=== PATIENT | female | born 1970 | race Caucasian/White ===

== ENCOUNTER 2016-08-11 22:06 | Emergency (ER) | payer OTHER ==
[~2016-08-11] VITALS: Ht 162.6 cm; Wt 52.6 kg
[2016-08-11 22:19] VITALS: BP 136/81
--- NOTE | 2016-08-11 22:37 | NUR ---
PT TAKEN TO BED 8
--- NOTE | 2016-08-11 22:50 | NUR ---
PATIENT PRESENTS TO ED WITH GENERALIZED ABD PAIN . PT STATES SHE HAS BEEN VOMITING WELL AND THE PAIN HAS A CONSTANT BURNING SENSATION . DENIES DIARRHEA; SKIN IS PINK/WARM/DRY; AAOX4 WITH EVEN AND STEADY GAIT; LUNGS CLEAR BL; HR EVEN AND REGULAR; PT DENIES ANY FEVER, CP, AND SOB AT THIS TIME; PATIENT STATES PAIN OF 8/10 AT THIS TIME; VSS; PATIENT POSITIONED FOR COMFORT; HOB ELEVATED; BEDRAILS UP X2; BED DOWN. ER MD MADE AWARE OF PT STATUS.
--- NOTE | 2016-08-11 22:55 | NUR ---
Ultrasound at bedside.
[2016-08-11] MEDS ORDERED: ONDANSETRON 4 MG/2 ML VIAL IVP ONE (23:00)
[2016-08-11] MEDS ORDERED: MORPHINE SULFATE 4 MG/ML SYR IVP ONE (23:00)
[2016-08-11] MEDS ORDERED: NACL 0.9% 1,000 ML IV ONE (23:00)
[2016-08-11 23:08] LABS: APPEARANCE,URINE HAZY (CLEAR); BILIRUBIN,URINE NEGATIVE (NEGATIVE); BLOOD, URINE 3+ (NEGATIVE); COLOR,URINE YELLOW (YELLOW); LEUKOCYTE ESTERASE ,URINE NEGATIVE (NEGATIVE); NITRITE, URINE NEGATIVE (NEGATIVE); PROTEIN,URINE NEGATIVE (NEGATIVE); UGLUCOSE NEGATIVE (NEGATIVE); UROBILINOGEN,URINE 0.2 EU/dL (0.2 - 1)
--- NOTE | 2016-08-11 23:15 | NUR ---
Dr. Hernandez evaluating patient at bedside.
[2016-08-11 23:16] LABS: ANION GAP 13.2 (8-16); CALCIUM 8.6 mg/dL (8.5-10.1); CARBON DIOXIDE 25.6 mmol/L (21-32); CREATININE 0.8 mg/dL (0.6-1.3); POTASSIUM 3.8 mmol/L (3.5-5.1)
[2016-08-11 23:18] LABS: BACTERIA,URINE 1+ /HPF (None Seen); RBC,URINE 3-10 (FEW) /HPF (0-5); SQUAMOUS EPITHELIAL CELL,UR 20-50 /LPF (0-3 (FEW))
[2016-08-11 23:22] LABS: ALBUMIN 3.3 g/dL (3.4-5.0); TOTAL BILIRUBIN 0.2 mg/dL (0.0-1.0); TOTAL PROTEIN, SERUM 6.8 g/dL (6.4-8.2)
[2016-08-11] MEDS ORDERED: LIDOCAINE VISCOUS 2% 20 ML UDC PO ONE (23:25)
[2016-08-11] MEDS ORDERED: ALUMINUM HYD/MAG/SIMETHICONE 30 ML UDC PO ONE (23:25)
[2016-08-11] MEDS ORDERED: DICYCLOMINE HCL LIQUID 10 MG/5 ML UDC PO ONE (23:25)
[2016-08-11 23:33] LABS: HEMATOCRIT 38.5 % (36-48); HEMOGLOBIN 12.8 g/dL (12.0-16.0); MEAN CORPUSCULAR HEMOGLOBIN 28 pg (27-31); MEAN CORPUSCULAR HGB CONC 33 g/dL (33-37); MEAN CORPUSCULAR VOLUME 85 fL (80-94); PLATELET COUNT (AUTO) 216 K/uL (140-450); RED BLOOD CELL COUNT(AUTO) 4.52 MIL/uL (4.20-5.40); RED CELL DISTRIBUTION WIDTH 11.9 % (11.6-13.7); WHITE BLOOD COUNT (AUTO) 4.9 K/uL (4.8-10.8)
[2016-08-11 23:35] LABS: BASOPHILS % (MANUAL) 1 % (0-2); EOSINOPHILS % (MANUAL) 8 % (0-4); LYMPHOCYTES % (MANUAL) 38 % (20-46); MONOCYTES % (MANUAL) 13 % (5-12); NEUTROPHILS % (MANUAL) 40 (43-65)
[2016-08-11 23:41] VITALS: BP 136/81
--- NOTE | 2016-08-11 23:41 | NUR ---
Patient discharged with v/s stable. Written and verbal after care instructions given and explained. Patient alert, oriented and verbalized understanding of instructions. Ambulatory with steady gait. All questions addressed prior to discharge. ID band removed. Patient advised to follow up with PMD. Rx of OMEPRAZOLE given. Patient educated on indication of medication including possible reaction and side effects. Opportunity to ask questions provided and answered.
== END 2016-08-11 23:41 | disposition home or self-care (01) ==
LOC: MED 22:06
DX: K21.9 Gastro-esophageal reflux disease without esophagitis (principal); J45.909 Unspecified asthma, uncomplicated
CPT/HCPCS: 36415; 76705; 80053; 81001; 81025; 82150; 83690; 85025; 87086; 99285; Q0092; J2270; J2405

== ENCOUNTER 2016-11-17 20:06 | Emergency (ER) | payer OTHER ==
[~2016-11-17] VITALS: Ht 162.6 cm; Wt 72.6 kg
[2016-11-17 20:07] VITALS: BP 126/83
--- NOTE | 2016-11-17 22:07 | NUR ---
TO ER BED 4
--- NOTE | 2016-11-17 22:10 | NUR ---
46Y F BIB SELF C/O RIGHT BREAST PAIN X 1 WEEK. PT STATES SHE WENT TO HAVE A MAMOGRAM AND ULTRASOUND BY HER DOCTOR 5 DAYS AGO AND WAS TOLD IT WAS NOT CANCEROUS. PT STATES PAIN IS 8/10, NON RADIATING. PT BREATH SOUNDS ARE CLEAR BILAT AND NONLABORED. PT AAOX4.
[2016-11-17] MEDS ORDERED: KETOROLAC 30 MG/ML VIAL IVP ONE (22:40)
[2016-11-17] MEDS ORDERED: NACL 0.9% 1,000 ML IV ONE (22:40)
[2016-11-17 23:21] LABS: BASOPHILS # (AUTO) 0.1 K/uL (0.00-0.22); BASOPHILS % (AUTO) 1.4 % (0.0-2.0); EOSINOPHILS # (AUTO) 0.2 K/uL (0-0.4); HEMATOCRIT 36.8 % (36-48); HEMOGLOBIN 12.1 g/dL (12.0-16.0); LYMPHOCYTES # (AUTO) 1.9 K/uL (2.5-16.5); LYMPHOCYTES % (AUTO) 19.7 % (20.5-51.1); MEAN CORPUSCULAR HEMOGLOBIN 28 pg (27-31); MEAN CORPUSCULAR HGB CONC 33 g/dL (33-37); MEAN CORPUSCULAR VOLUME 84 fL (80-94); MONOCYTES # (AUTO) 0.7 K/uL (0.8-1.0); MONOCYTES % (AUTO) 6.9 % (1.7-9.3); NEUTROPHILS # (AUTO) 6.6 K/uL (1.8-7.7); PLATELET COUNT (AUTO) 264 K/uL (140-450); RED CELL DISTRIBUTION WIDTH 15.2 % (11.6-13.7); WHITE BLOOD COUNT (AUTO) 9.5 K/uL (4.8-10.8)
[2016-11-17 23:31] LABS: ANION GAP 10.7 (8-16); CALCIUM 7.8 mg/dL (8.5-10.1); CARBON DIOXIDE 27.2 mmol/L (21-32); CREATININE 0.9 mg/dL (0.6-1.3); POTASSIUM 3.9 mmol/L (3.5-5.1)
--- NOTE | 2016-11-18 02:27 | NUR ---
IV removed, catheter intact and site benign. Applied folded 4x4 gauze and tape to stop bleeding.
[2016-11-18 02:28] VITALS: BP 123/79
--- NOTE | 2016-11-18 02:30 | NUR ---
Patient discharged with v/s stable. Written and verbal after care instructions given and explained. Patient alert, oriented and verbalized understanding of instructions. Ambulatory with steady gait. All questions addressed prior to discharge. ID band removed. Patient advised to follow up with PMD. Rx NORCO 5/325 AND NAPROSYN 500MG, CLINDIMYCIN 300MG WAS given. Patient educated on indication of medication including possible reaction and side effects. Opportunity to ask questions provided and answered.
== END 2016-11-18 02:28 | disposition home or self-care (01) ==
LOC: MED 20:06
DX: N61.0 Mastitis without abscess (principal); J45.909 Unspecified asthma, uncomplicated
CPT/HCPCS: 36415; 71260; 80048; 81002; 81025; 85025; 96361; 96374; 99285; J1885; J7030; Q9967

== ENCOUNTER 2017-01-10 12:19 | Emergency (ER) | payer OTHER ==
[~2017-01-10] VITALS: Ht 162.6 cm; Wt 79.4 kg
[2017-01-10 13:11] VITALS: BP 143/77
--- NOTE | 2017-01-10 13:47 | NUR ---
Patient called. No answer.
--- NOTE | 2017-01-10 13:47 | NUR ---
PATIENT LEFT WITHOUT BEING SEEN BY DR. CASTILLO. NO FURTHER CARE PROVIDED FOR PATIENT.
== END 2017-01-10 13:47 | disposition left against medical advice (07) ==
LOC: MED 12:19
DX: M54.2 Cervicalgia (principal); Z53.21 Procedure and treatment not carried out due to patient leaving prior to being seen by health care provider

== ENCOUNTER 2017-02-06 14:52 | Emergency (ER) | payer OTHER ==
[~2017-02-06] VITALS: Ht 165.1 cm; Wt 71.2 kg
[2017-02-06 15:00] VITALS: BP 136/83
--- NOTE | 2017-02-06 16:01 | NUR ---
Patient ambulated to bed 04.
--- NOTE | 2017-02-06 16:06 | NUR ---
46F BIB SELF C/O VAGINAL PAIN, NON-RADIATING, STABBING, 8/10 X 1 MONTH; PT STATES NO TRAUMA OR INJURY TO SITE AT THIS TIME; PT C/O URINARY BURNING AND FREQUENCY, BUT STATES NO URINARY DISCHARGE, ODOR, VAGINAL BLEEDING OR HEMATURIA AT THIS TIME; PT AA&OX4, PERRLA, BL LUNG SOUNDS CLEAR, RR EVEN/UNLABORED, SKIN IS WARM/DRY/INTACT AT THIS TIME; PT STATES NO N/V/D AT THIS TIME; STEADY GAIT; PT RESTING IN BED WITH HOB ELEVATED AND IN LOWEST POSITION; POSITIONED FOR COMFORT; ER MD MADE AWARE OF STATUS. WILL CONTINUE TO MONITOR.
--- NOTE | 2017-02-06 16:25 | NUR ---
ER MD DR. BLOOM EVALUATING PT AT BEDSIDE.
--- NOTE | 2017-02-06 16:33 | NUR ---
Sixto dawkins in ED - 02/06/17 at [address] Floyd evaluating patient at bedside.
--- NOTE | 2017-02-06 16:44 | NUR ---
US at bedside.
--- NOTE | 2017-02-06 17:47 | NUR ---
GINETTE PISANO CHAPERONED ER MD DR. BLOOM FOR FEMALE VAGINAL EXAM AT THIS TIME
[2017-02-06 18:05] VITALS: BP 138/76
--- NOTE | 2017-02-06 18:05 | NUR ---
DPatient discharged with v/s stable. Written and verbal after care instructions given and explained. Patient alert, oriented and verbalized understanding of instructions. Ambulatory with to car. All questions addressed prior to discharge. ID band removed. Patient advised to follow up with PMD. Rx of MOTRIN 800MG TAB & TRAMADOL HYDROCHLORIDE 50MG TAB given. Patient educated on indication of medication including possible reaction and side effects. Opportunity to ask questions provided and answered.
== END 2017-02-06 18:05 | disposition home or self-care (01) ==
LOC: MED 14:52
DX: N83.202 Unspecified ovarian cyst, left side (principal); N83.201 Unspecified ovarian cyst, right side; R03.0 Elevated blood-pressure reading, without diagnosis of hypertension; J45.909 Unspecified asthma, uncomplicated
CPT/HCPCS: 76856; 81002; 81025; 99284; Q0092

== ENCOUNTER 2019-01-03 06:09 | Day surgery (SDC) | payer OTHER ==
[~2019-01-03] VITALS: Ht 162.6 cm; Wt 77.1 kg
[2019-01-03] MEDS ORDERED: LIDOCAINE 2% 100 MG/5 ML UJET TP ONE (07:39)
[2019-01-03] MEDS ORDERED: fentaNYL 0.05 MG/ML VIAL ONE (07:39)
[2019-01-03] MEDS ORDERED: fentaNYL 0.05 MG/ML VIAL IVP ONE (08:25)
== END 2019-01-03 08:45 | disposition home or self-care (01) ==
LOC: MOR 06:09 → MMU 06:14 → MOR 08:45
PROVIDERS: ATTEND Internal Medicine Gastroenterology
DX: K57.30 Diverticulosis of large intestine without perforation or abscess without bleeding (principal); K64.8 Other hemorrhoids; K62.89 Other specified diseases of anus and rectum
CPT/HCPCS: 45378; 81025; J3010